=== PATIENT | male | born 1950 | race Caucasian/White ===

== ENCOUNTER 2017-02-13 21:33 | Observation (INO) | payer MEDICARE, MEDICAID ==
[2017-02-13] MEDS ORDERED: CLINDAMYCIN-D5W 900 MG/50 ML*** 900 MG/50 ML BAG IV STA (22:22)
--- NOTE | 2017-02-13 22:25 | ERPHSYRPT ---
- History of Present Illness Time Seen by Provider: 02/13/17 21:55 Source: patient Exam Limitations: no limitations Patient Subjective Stated Complaint: pt states this morning feeling dizzy, confused, states has happened before when he needed a blood transfusion Triage Nursing Assessment: Skin pale, alert to person and place, bilat LE swelling, weeping, stating he has been getting treatment for wounds for cellulitis; wears 3.5L at home O2 Physician History: FOR THE PAST WEEK PT HAS HAD GENERALIZED WEAKNESS AND WAS SEEING BLACK SPOTS. PT STATES TODAY HE HAS BEEN DIZZY AND CONFUSED. ONE WEEK AGO PT DROPPED A PIECE OF WOOD ON HIS LEFT LEG WITH REMOVAL OF SKIN AND HAS BEEN BLEEDING THROUGH BANDAGES SINCE. PT HAS HAD CHRONIC LEG EDEMA FOR YEARS. PT DENIES PASSING BLOOD IN STOOLS, VOMITING BLOOD OR URINATING BLOOD. PT DENIES CHEST PAIN, NAUSEA, FEVER; ADMITS TO SHORTNESS OF AIR BECAUSE OF HIS COPD. Allergies/Adverse Reactions: meperidine HCl [From Demerol] Allergy (Verified 09/30/14 05:51) sob/ n&v Home Medications: Carvedilol 12.5 mg [Coreg 12.5 mg] 12.5 mg PO BID 06/19/13 [History] Potassium Chloride 20 Meq [Klor-Con 20 MEQ] 50 meq PO BID 03/12/14 [History] Allopurinol 100 mg [Zyloprim 100 mg] 100 mg PO QID 02/13/17 [History] Ferrous Sulfate 1 tab PO TID 02/13/17 [History] Torsemide 1 tab PO BID 02/13/17 [History] Hx Tetanus, Diphtheria Vaccination/Date Given: No Hx Influenza Vaccination/Date Given: No Hx Pneumococcal Vaccination/Date Given: No Immunizations Up to Date: Yes - Review of Systems Constitutional: Weakness (GENERALIZED) Eyes: Other (SEEING BLACK SPOTS) Respiratory: Dyspnea Cardiac: No Chest Pain Abdominal/Gastrointestinal: No Abdominal Pain, No Nausea, No Vomiting Musculoskeletal: Other (ULCER ON LEFT LEG; CHRONIC LEG SWELLING BILATERALLY.) Neurological: Dizziness, Other (CONFUSION) All Other Systems: Reviewed and Negative - Past Medical History Pertinent Past Medical History: Yes Neurological History: No Pertinent History ENT History: No Pertinent History Cardiac History: Congestive Heart Failure, Hypertension, Myocardial Infarction ( [place]), Other Respiratory History: COPD, Pneumonia Endocrine Medical History: No Pertinent History Musculoskeletal History: No Pertinent History GI Medical History: GERD History: Renal Disease Psycho-Social History: No Pertinent History Male Reproductive Disorders: No Pertinent History Other Medical History: CABG - Past Surgical History Past Surgical History: Yes Neuro Surgical History: No Pertinent History Cardiac: CABG Respiratory: No Pertinent History Gastrointestinal: No Pertinent History Genitourinary: No Pertinent History Musculoskeletal: Joint Replacement Male Surgical History: No Pertinent History Other Surgical History: rt knee - Social History Smoking Status: Former smoker Exposure to second hand smoke: Yes Drug Use: none Patient Lives Alone: No - Nursing Vital Signs Nursing Vital Signs: Initial Vital Signs Temperature 97.8 F 02/13/17 21:53 Pulse Rate 98 H 02/13/17 21:53 Respiratory Rate 24 02/13/17 21:53 Blood Pressure 82/46 02/13/17 21:53 O2 Sat by Pulse Oximetry 100 02/13/17 21:53 Pain Scale Pain Intensity 0 - Physical Exam General Appearance: alert Eye Exam: PERRL/EOMI Ears, Nose, Throat Exam: moist mucous membranes Neck Exam: normal inspection Respiratory Exam: lungs clear Cardiovascular Exam: normal heart sounds Gastrointestinal/Abdomen Exam: soft, normal bowel sounds Back Exam: other (KYPHOSIS) Extremity Exam: other (+3 EDEMA OF BOTH LEGS; 10" X 6.5 " ULCER ON LEFT YBARRA.) Neurologic Exam: alert, oriented x 3, cooperative Skin Exam: pale SpO2 Interpretation: normal SpO2: 100 Oxygen Delivery: Room Air - Course Nursing assessment & vital signs reviewed: Yes EKG Interpreted by Me: RATE ([id number]), NORMAL AXIS, Non-specific ST Changes - Radiology Exams Left Lower Leg X-ray Interpretation: Interpreted by me, No Fracture Chest X-ray Interpretation: Interpreted by me, No Pneumonia - Radiology Ultrasound Exam Left Venous Lower Extremity Ultrasound: Other (TECH REPORT: NO DVT) Ordered Tests: Active Orders 24 hr Category Date Time Status Ticket Writer STAT Care 02/13/17 22:21 Active Clean Catch Urine Specimen STAT Care 02/13/17 22:19 Active EKG-ER Only STAT Care 02/13/17 22:19 Active IV Insertion STAT Care 02/13/17 22:19 Active Oxygen-ED Only NASAL CANNULA 3 lpm Care 02/13/17 22:19 Active Pulse Oximetry (ED) STAT Care 02/13/17 22:19 Active CHEST 1 VIEW (PORTABLE) Stat Exams 02/13/17 22:21 Taken LOWER LEG Stat Exams 02/13/17 23:00 Taken VENOUS BILATERAL EXTREMITY [US] Stat Exams 02/13/17 22:23 Taken AMYLASE Stat Lab 02/13/17 22:35 Completed BLOOD CULTURE Stat Lab 02/13/17 22:45 Received CBC W DIFF Stat Lab 02/13/17 22:35 Completed CMP Stat Lab 02/13/17 22:35 Completed LIPASE Stat Lab 02/13/17 22:35 Completed MAGNESIUM Stat Lab 02/13/17 22:35 Completed Manual Differential NC Stat Lab 02/13/17 22:35 Completed NT PRO BNP Stat Lab 02/13/17 22:35 Completed TROPONIN Q3H Lab 02/13/17 22:35 Completed TROPONIN Q3H Lab 02/14/17 01:30 Ordered TROPONIN Q3H Lab 02/14/17 04:30 Ordered TROPONIN Q3H Lab 02/14/17 07:30 Ordered TROPONIN Q3H Lab 02/14/17 10:30 Ordered UA W/RFX UR CULTURE Stat Lab 02/13/17 22:20 Ordered Medication Summary Generic Name Dose Route Start Last Admin Trade Name Freq PRN Reason Stop Dose Admin Sodium Chloride 1,000 mls @ 100 mls/hr 02/13/17 22:30 02/13/17 22:34 Sodium Chloride 0.9% 1000 Ml IV 03/15/17 22:29 100 mls/hr .Q10H LJ Administration Discontinued Medications Generic Name Dose Route Start Last Admin Trade Name Freq PRN Reason Stop Dose Admin Clindamycin HCl/Dextrose 900 mg in 50 mls @ 100 mls/hr 02/13/17 22:22 22:34 Clindamycin-D5w 900 Mg/50 Ml IV 02/13/17 22:51 100 mls/hr STAT STA Administration Clindamycin HCl/Dextrose Confirm 02/13/17 22:28 Clindamycin-D5w 900 Mg/50 Ml Administered 02/13/17 22:29 Dose 900 mg in 50 mls @ ud IV .STK-MED ONE Lab/Rad Data: Laboratory Result Diagrams 02/13/17 22:35 02/13/17 22:35 Laboratory Results 02/13/17 02/13/17 02/13/17 Range/Units 22:35 22:35 22:35 WBC 13.5 H (4.0-10.5) K/mm3 RBC 2.02 L (4.1-5.6) M/mm3 Hgb 4.6 L* (12.5-18.0) gm/dl Hct 17.2 L (42-50) % MCV 85.1 (78-100) fl MCH 22.7 L (26-32) pg MCHC 26.7 L (32-36) g/dl RDW 18.7 H (11.5-14.0) % Plt Count 392 (150-450) K/mm3 MPV 8.2 (6-9.5) fl Sodium 128 L (136-145) mEq/L Potassium 4.2 (3.5-5.1) mEq/L Chloride 87 L (98-107) mEq/L Carbon Dioxide 35.4 H (21-32) mEq/L Anion Gap 10.0 (5-15) MEQ/L BUN 86 H (9-20) mg/dL Creatinine 4.42 H (0.55-1.30) mg/dl Estimated GFR 14 ML/MIN Glucose 102 (70-110) MG/DL Calcium 8.1 L (8.5-10.1) mg/dL Magnesium 2.7 H (1.8-2.4) mg/dL Total Bilirubin 0.20 (0.2-1.0) mg/dL AST 15 (15-37) U/L ALT 11 L (12-78) U/L Alkaline Phosphatase 97 (46-116) U/L Troponin I 0.035 (0.000-0.056) ng/ml NT-Pro-B Natriuret Pep 3713 H (0-125) pg/ml Serum Total Protein 6.3 L (6.4-8.2) gm/dL Albumin 2.0 L (3.4-5.0) g/dL Amylase 101 (25-115) U/L Lipase 223 (73-393) U/L - Progress Discussed with : Yuliya ([facility] - [id number]) - Departure Time of Disposition: 00:57 Departure Disposition: Observation Clinical Impression: SEVERE ANEMIA, CELLULITIS/ULCER OF LEFT LEG, HTN, COPD, GERD, CKD Condition: Stable Critical Care Time: No Referrals: KIZZY MENJIVAR [Primary Care Provider] -
[2017-02-13] MEDS ORDERED: CLINDAMYCIN-D5W 900 MG/50 ML*** 900 MG/50 ML BAG IV ONE (22:28)
[2017-02-13] MEDS ORDERED: Sodium Chloride 0.9% 1000 ML 1,000 ML ONE (22:28)
[2017-02-13] MEDS ORDERED: Sodium Chloride 0.9% 1000 ML 1,000 ML IV SCH (22:30)
[2017-02-13 23:19] LABS: Granulocyte Absolute (ANC) 11.41 (1.4-6.9); Hematocrit 17.2 % (42-50); Mean Cell Volume 85.1 fl (78-100); Mean Corpuscular Hgb Concent. 26.7 g/dl (32-36); Mean Platelet Volume 8.2 fl (6-9.5); Platelet Count 392 K/mm3 (150-450); Red Blood Count 2.02 M/mm3 (4.1-5.6); Red Cell Distribution Width 18.7 % (11.5-14.0); White Blood Count 13.5 K/mm3 (4.0-10.5)
[2017-02-13 23:21] LABS: Mean Corpuscular Hemoglobin 22.7 pg (26-32)
[2017-02-13 23:22] LABS: Hemoglobin 4.6 gm/dl (12.5-18.0)
[2017-02-13 23:32] LABS: BILIRUBIN,TOTAL 0.2 mg/dL (0.2-1.0); Calcium 8.1 mg/dL (8.5-10.1); Carbon Dioxide 35.4 mEq/L (21-32); Creatinine 1 4.42 mg/dl (0.55-1.30); MAGNESIUM 2.7 mg/dL (1.8-2.4); Potassium 4.2 mEq/L (3.5-5.1); Total Protein 6.3 gm/dL (6.4-8.2)
[2017-02-14 01:00] LABS: ABO TYPING A; Antibody Screen NEGATIVE (NEGATIVE); RH TYPING NEGATIVE
[2017-02-14] MEDS ORDERED: TYLENOL 325 MG PO PRN (01:39)
[2017-02-14] MEDS ORDERED: PROVENTIL 2.5 MG/3 ML NEB IH PRN (01:39)
[2017-02-14] MEDS ORDERED: Phenergan 25 MG INJ IV PRN (01:39)
[2017-02-14] MEDS ORDERED: Sodium Chloride 0.9% 1000 ML 1,000 ML IV SCH (01:39)
[2017-02-14 03:09] LABS: Appearance CLEAR (CLEAR); Bilirubin NEGATIVE (NEGATIVE); Blood NEGATIVE Ery/ul (0-5); Glucose NEGATIVE (NEGATIVE); Ketones NEGATIVE (NEGATIVE); Leukocyte Esterase NEGATIVE (NEGATIVE); Nitrite NEGATIVE (NEGATIVE); Ph 6.5 (5-6); Protein,Urine Dip NEGATIVE (Negative); Urobilinogen NORMAL mg/dL (0-1)
[2017-02-14 04:21] LABS: Eosinophil 1 % (0.00-3.0); Lymphocytes 8 % (24-44); Monocyte 5 % (0.0-12.0); Neutrophils 86 % (36.-66.); Platelet Estimate NORMAL (NORMAL); Total Cells Counted 100
[2017-02-14 04:22] LABS: ANISOCYTOSIS 3+; Poikilocytosis 2+
[2017-02-14 04:24] LABS: Macrocytosis 1+
[2017-02-14 04:25] LABS: Stomatocyte 1+; Targert Cells RARE
[2017-02-14] MEDS ORDERED: PROTONIX 40 MG IV IV ONE (04:52)
[2017-02-14] MEDS ORDERED: CLINDAMYCIN-D5W 600 MG/50 ML*** 600 MG/50 ML BAG IV SCH (06:00)
[2017-02-14] MEDS: DUONEB 0.5-3 MG/3 ml Neb IH SCH ×2 (06:45→10:34)
--- NOTE | 2017-02-14 08:36 | XRAY ---
Indication: Swelling. Two-dimensional sonogram and color Doppler imaging of the major venous vessels of the left and right leg was performed. Comparison: March 13, 2014. Again no thrombus seen in the examined deep venous vessels of the left and right leg including greater saphenous veins. Veins demonstrate normal compressibility. Venous waveforms are normal with and without augmentation. Impression: Left and right legs again negative for DVT. Comment: Preliminary report was given.
--- NOTE | 2017-02-14 08:52 | XRAY ---
Indication: Short of breath. Comparison: October 02, 2014. Portable chest limited due to patient's head obscuring the apices. Visualized lungs clear. Heart is not enlarged and again demonstrates previous CABG surgery. Bony thorax intact again with mild osteopenia and degenerative changes. Impression: Nonacute limited portable chest.
--- NOTE | 2017-02-14 08:52 | XRAY ---
Indication: Weeping wound following injury. Comparison: February 18, 2015. 2 views of the left lower leg again demonstrates mild osteopenia, scattered vascular calcifications, numerous vascular clips, and diffuse soft tissue swelling/edema. No new/acute findings.
[2017-02-14] MEDS ORDERED: PROTONIX 40 MG IV IV SCH ×2 (10:00→22:00)
[2017-02-14 10:01] LABS: Granulocyte Absolute (ANC) 8.86 (1.4-6.9); Hematocrit 19.3 % (42-50); Mean Cell Volume 83.5 fl (78-100); Mean Platelet Volume 7.4 fl (6-9.5); Platelet Count 279 K/mm3 (150-450); Red Blood Count 2.31 M/mm3 (4.1-5.6); Red Cell Distribution Width 19.1 % (11.5-14.0); White Blood Count 10.4 K/mm3 (4.0-10.5)
[2017-02-14 10:20] LABS: Mean Corpuscular Hemoglobin 23.3 pg (26-32)
[2017-02-14 10:23] LABS: Hemoglobin 5.4 gm/dl (12.5-18.0)
[2017-02-14] MEDS ORDERED: DEMADEX 20 MG PO SCH (11:00)
[2017-02-14] MEDS ORDERED: COREG 12.5 MG PO SCH (11:00)
[2017-02-14] MEDS ORDERED: Klor Con 10 MEQ PO SCH (11:00)
[2017-02-14 11:56] LABS: ALBUMIN 1.9 g/dL (3.4-5.0); ANION GAP 8.8 MEQ/L (5-15); BILIRUBIN,TOTAL 0.3 mg/dL (0.2-1.0); Calcium 7.8 mg/dL (8.5-10.1); Carbon Dioxide 34.6 mEq/L (21-32); Creatinine 1 3.8 mg/dl (0.55-1.30); Total Protein 5.8 gm/dL (6.4-8.2)
[2017-02-14 12:10] LABS: Potassium 2.9 mEq/L (3.5-5.1)
[2017-02-14 12:24] LABS: ANISOCYTOSIS 1+; Lymphocytes 9 % (24-44); Monocyte 4 % (0.0-12.0); Neutrophils 87 % (36.-66.); Platelet Estimate NORMAL (NORMAL); Poikilocytosis 1+; Total Cells Counted 100
[2017-02-14 12:25] LABS: Polychromasia 1+
[2017-02-14 12:51] VITALS: BP 98/47; PULSE 91; O2SAT 100
[2017-02-14] MEDS ORDERED: ZYLOPRIM 100 MG PO SCH (13:00)
[2017-02-14] MEDS ORDERED: FEOSOL 325 MG PO SCH (15:00)
[2017-02-14] MEDS ORDERED: TORSEMIDE PO SCH (22:00)
[2017-02-15 08:38] LABS: Vitamin D 25 Hydroxy 32 ng/mL (30-80)
[2017-02-15] MEDS ORDERED: NON-FORMULARY ITEM (Omeprazole [Omeprazole] 20 MG) PO SCH (10:00)
[2017-02-15] MEDS ORDERED: Protonix 40MG Tablet PO SCH (10:00)
[2017-02-15 10:14] LABS: PTH INTACT 198 pg/mL (15-72)
== END 2017-02-14 12:45 | disposition short-term general hospital (02) ==
LOC: ED 21:33 → MED SURG 02-14 01:17
PROVIDERS: ADMIT General Practice; ATTEND General Practice
DX: D64.9 Anemia, unspecified (principal); L03.116 Cellulitis of left lower limb; L97.929 Non-pressure chronic ulcer of unspecified part of left lower leg with unspecified severity; I12.9 Hypertensive chronic kidney disease with stage 1 through stage 4 chronic kidney disease, or unspecified chronic kidney disease; N18.9 Chronic kidney disease, unspecified; M79.89 Other specified soft tissue disorders; I50.9 Heart failure, unspecified; K21.9 Gastro-esophageal reflux disease without esophagitis; J44.9 Chronic obstructive pulmonary disease, unspecified; Z79.899 Other long term (current) drug therapy
CPT/HCPCS: 36000; 36415; 36430; 71045; 73590; 80053; 81002; 82150; 82306; 83690; 83735; 83880; 83970; 84484; 85025; 86850; 86900; 86901; 86922; 87040; 93005; 93041; 93268; 93970; 94640; 94760; 96360; 96361; 96365; 99285; G0378; P9016; A9270-GY

== ENCOUNTER 2017-08-12 08:13 | Emergency (ER) | payer MEDICARE, MEDICAID ==
--- NOTE | 2017-08-12 08:46 | ERPHSYRPT ---
- History of Present Illness Time Seen by Provider: 08/12/17 08:34 Source: patient Exam Limitations: no limitations Patient Subjective Stated Complaint: pt here for constipation for over a week now, has laxitive with no help, pt aslo co increase sob. Triage Nursing Assessment: pt alert, resp labored with excertion, abd large and distended . 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 He arrives with complaint of constipation and abdominal distention symptoms for 2 weeks. He has shortness of breath. Patient has chronic edema to the lower legs. Patient states he had a very small bowel movement yesterday abdominal is markedly distended. Past medical history includes high blood pressure, CHF, IN, COPD, pneumonia, GERD, CABG, venous stasis lower extremities, renal insufficiency, cellulitis of the lower extremities., Severe anemia Past surgical history includes CABG, right knee replacement. Social history patient former smoker. Timing/Duration: week(s) (2-1/2 weeks) Severity: moderate Modifying Factors: Improves With: nothing Associated Symptoms: shortness of breath, other (abdominal distention constipation, edema lower extremities), No nausea, No vomiting, No abdominal pain, No heartburn, No diaphoresis, No cough, No chills, No chest pain, No fever , No headaches, No loss of appetite, No malaise, No rash, No seizure, No weakness Allergies/Adverse Reactions: meperidine HCl [From Demerol] Allergy (Verified 08/12/17 08:31) sob/ n&v Home Medications: Carvedilol 12.5 mg [Coreg 12.5 mg] 12.5 mg PO BID 06/19/13 [History] Allopurinol 100 mg [Zyloprim 100 mg] 100 mg PO QID 02/13/17 [History] Ferrous Sulfate 1 tab PO TID 02/13/17 [History] Torsemide 1 tab PO BID 02/13/17 [History] Acetaminophen [Tylenol Extra Strength] 500 mg PO BID PRN 02/14/17 [History] Albuterol 2.5 mg/3 ml Neb [Proventil 2.5 mg/3 ml Neb] 2.5 mg IH QID [History] Albuterol Sulfate [Proventil Hfa] 6.7 gm IH BID PRN 02/14/17 [History] Aspirin 81 gm Chew [Baby Aspirin 81 mg Chew] 81 mg PO DAILY 02/14/17 [ History] Omeprazole 20 mg PO DAILY 02/14/17 [History] Potassium Chloride 10 Meq Tab* [Klor Con 10 MEQ] 50 meq PO BID 02/14/17 [ History] Hx Tetanus, Diphtheria Vaccination/Date Given: No Hx Influenza Vaccination/Date Given: Yes Hx Pneumococcal Vaccination/Date Given: Yes Immunizations Up to Date: Yes - Review of Systems Constitutional: No Fever, No Chills Eyes: No Symptoms Ears, Nose, & Throat: No Symptoms Respiratory: Dyspnea Cardiac: Edema, No Chest Pain, No Syncope Abdominal/Gastrointestinal: Other (abdominal distention constipation) Genitourinary Symptoms: No Dysuria Musculoskeletal: No Back Pain, No Neck Pain Skin: Other (chronic venous stasis lower extrremities) Neurological: No Dizziness, No Focal Weakness, No Sensory Changes Psychological: No Symptoms Endocrine: No Symptoms All Other Systems: Reviewed and Negative - Past Medical History Pertinent Past Medical History: Yes Neurological History: No Pertinent History ENT History: No Pertinent History Cardiac History: Congestive Heart Failure, Myocardial Infarction ([place]), Other Respiratory History: COPD, Pneumonia Endocrine Medical History: No Pertinent History Musculoskeletal History: No Pertinent History GI Medical History: GERD History: Renal Disease Psycho-Social History: No Pertinent History Male Reproductive Disorders: No Pertinent History Other Medical History: CABG - Past Surgical History Past Surgical History: Yes Neuro Surgical History: No Pertinent History Cardiac: CABG Respiratory: No Pertinent History Gastrointestinal: No Pertinent History Genitourinary: No Pertinent History Musculoskeletal: Joint Replacement Male Surgical History: No Pertinent History Other Surgical History: rt knee - Social History Smoking Status: Former smoker Exposure to second hand smoke: No Drug Use: none Patient Lives Alone: No - Nursing Vital Signs Nursing Vital Signs: Initial Vital Signs Temperature 97.5 F 08/12/17 08:16 Pulse Rate 68 08/12/17 08:16 Respiratory Rate 24 08/12/17 08:16 Blood Pressure 110/61 08/12/17 08:16 O2 Sat by Pulse Oximetry 92 L 08/12/17 08:16 Pain Scale Pain Intensity 6 - Physical Exam General Appearance: other (well-developed white male, markedly abdominal distention, patient short of breath with talking) Eye Exam: PERRL/EOMI, eyes nml inspection Ears, Nose, Throat Exam: normal ENT inspection, TMs normal, pharynx normal, moist mucous membranes Neck Exam: normal inspection, non-tender, supple, full range of motion Respiratory Exam: other (patient's lungs are clear, patient becomes short ofbreath with talking) Cardiovascular Exam: regular rate/rhythm, normal heart sounds, normal peripheral pulses Gastrointestinal/Abdomen Exam: other (abdomen markedly distended, firm, nontender, bowel sounds positive) Rectal Exam: other (no hard stool palpated, brown stool, some visible blood possibly from rectum) Back Exam: normal inspection, normal range of motion, No CVA tenderness, No vertebral tenderness Extremity Exam: other (lower extremities edematous, not hot, clear to blood tinged drainage from bilateral legs..) Neurologic Exam: alert, oriented x 3, cooperative, prosthetics technician II-XII nml as tested, normal mood/affect, nml cerebellar function, nml station & gait, sensation nml, No motor deficits Skin Exam: other (lower extremity edema, clear to blood-tinged drainage from legs) SpO2 Interpretation: normal (92%) SpO2: 92 Oxygen Delivery: Nasal Cannula - Course Nursing assessment & vital signs reviewed: Yes EKG Interpreted by Me: RATE (67 bpm), Sinus Rhythm, NORMAL AXIS, Other (EKG: Sinus rhythm with large amount of artifact, [address] depression V1 andV2) - Radiology Exams Abdomen X-ray Interpretation: Interpreted by me (acute abdomen series: Chest no acute disease proces, abdomen multiple air-fluid levels concerning for small bowel obstruction) Ordered Tests: Active Orders 24 hr Category Date Time Status EKG-ER Only STAT Care 08/12/17 08:38 Active IV Insertion STAT Care 08/12/17 08:38 Active IV Insertion-2nd Peripheral STAT Care 08/12/17 13:17 Active ABDOMEN AND PELVIS W/0 CONTRAS [CT] Stat Exams 08/12/17 10:43 Taken OBSTR/ACUTE ABDOMEN SERIES Stat Exams 08/12/17 09:32 Taken AMYLASE Stat Lab 08/12/17 09:35 Completed BLOOD CULTURE Stat Lab 08/12/17 12:05 Received CBC W DIFF Stat Lab 08/12/17 09:35 Completed CMP Stat Lab 08/12/17 09:35 Completed LIPASE Stat Lab 08/12/17 09:35 Completed Lactic Acid Stat Lab 08/12/17 12:10 Completed Lactic Acid Stat Lab 08/12/17 14:10 Ordered Manual Differential NC Stat Lab 08/12/17 09:35 Completed NT PRO BNP Stat Lab 08/12/17 09:35 Completed Occult Blood,Stool Other Stat Lab 08/12/17 11:45 Completed PROTIME WITH INR Stat Lab 08/12/17 09:55 Completed PTT Stat Lab 08/12/17 09:55 Completed Medication Summary Discontinued Medications Generic Name Dose Route Start Last Admin Trade Name Freq PRN Reason Stop Dose Admin Albuterol Sulfate Confirm 08/12/17 12:46 Proventil 2.5 Mg/3 Ml Neb Administered 08/12/17 12:47 Dose 2.5 mg IH .STK-MED ONE Sodium Chloride 1,000 mls @ 30 mls/hr 08/12/17 10:15 08/12/17 10:45 Sodium Chloride 0.9% 1000 Ml IV 09/11/17 10:14 30 mls/hr .Q24H LJ Administration Piperacillin Sod/Tazobactam Sod 3.375 gm in 100 mls @ 200 mls/hr 08/12/17 11: 50 08/12/17 12:06 Zosyn 3.375gm/100 Ml D5w IV 08/12/17 12:19 200 mls/hr STAT STA Administration Piperacillin Sod/Tazobactam Sod Confirm 08/12/17 11:57 Zosyn 3.375gm/100 Ml D5w Administered 08/12/17 11:58 Dose 3.375 gm in 100 mls @ ud IV .STK-MED ONE Dopamine HCl/Dextrose Confirm 08/12/17 12:45 Dopamine 400 Mg/D5w 250ml Premix Administered 08/12/17 12:46 Dose 250 mls @ ud IV .STK-MED ONE Dopamine HCl/Dextrose Confirm 08/12/17 12:48 Dopamine 400 Mg/D5w 250ml Premix Administered 08/12/17 12:49 Dose 250 mls @ ud IV .STK-MED ONE Sodium Chloride Confirm 08/12/17 10:13 Sodium Chloride 0.9% 1000 Ml Administered 08/12/17 10:14 Dose 1,000 mls @ ud .ROUTE .STK-MED ONE Morphine Sulfate 2 mg 08/12/17 10:01 08/12/17 10:08 Morphine Sulfate 2 Mg Inj IV 08/12/17 10:02 2 mg STAT ONE Administration Morphine Sulfate Confirm 08/12/17 10:02 Morphine Sulfate 2 Mg Inj Administered 08/12/17 10:03 Dose 2 mg .ROUTE .STK-MED ONE Lab/Rad Data: Laboratory Result Diagrams 08/12/17 09:35 08/12/17 09:35 Laboratory Results 08/12/17 08/12/17 08/12/17 Range/Units 12:10 11:45 09:55 WBC (4.0-10.5) K/mm3 RBC (4.1-5.6) M/mm3 Hgb (12.5-18.0) gm/dl Hct (42-50) % MCV (78-100) fl MCH (26-32) pg MCHC (32-36) g/dl RDW (11.5-14.0) % Plt Count (150-450) K/mm3 MPV (6-9.5) fl Absolute Granulocytes (1.4-6.9) Segmented Neutrophils (36.-66.) % Band Neutrophils (0.0-2.0) % Lymphocytes (Manual) (24-44) % Monocytes (Manual) (0.0-12.0) % Basophils (Manual) (0.0-1.0) % Toxic Granulation Platelet Estimate (NORMAL) RBC Morphology PT 14.1 H (8.83-12.87) SECONDS INR 1.21 (0.8-3.0) APTT 32.0 (24.1-36.1) SECONDS Sodium (137-145) mmol/L Potassium (3.5-5.1) mmol/L Chloride (98-107) mmol/L Carbon Dioxide (22-30) mmol/L Anion Gap (5-15) MEQ/L BUN (9-20) mg/dL Creatinine (0.66-1.25) mg/dL Estimated GFR ML/MIN Glucose (74-106) mg/dL Lactic Acid 1.9 (0.4-2.0) Calcium (8.4-10.2) mg/dL Total Bilirubin (0.2-1.3) mg/dL AST (17-59) U/L ALT (0-50) U/L Alkaline Phosphatase (38-126) U/L NT-Pro-B Natriuret Pep (0-900) pg/mL Serum Total Protein (6.3-8.2) g/dL Albumin (3.5-5.0) g/dL Amylase (30-110) U/L Lipase (23-300) U/L Stool Occult Blood POSITIVE (Negative) 08/12/17 08/12/17 08/12/17 Range/Units 09:35 09:35 09:35 WBC 22.2 H (4.0-10.5) K/mm3 RBC 4.47 (4.1-5.6) M/mm3 Hgb 12.8 (12.5-18.0) gm/dl Hct 42.1 (42-50) % MCV 94.2 (78-100) fl MCH 28.6 (26-32) pg MCHC 30.4 L (32-36) g/dl RDW 17.3 H (11.5-14.0) % Plt Count 265 (150-450) K/mm3 MPV 9.1 (6-9.5) fl Absolute Granulocytes 21.05 H (1.4-6.9) Segmented Neutrophils 83 H (36.-66.) % Band Neutrophils 12 H (0.0-2.0) % Lymphocytes (Manual) 2 L (24-44) % Monocytes (Manual) 2 (0.0-12.0) % Basophils (Manual) 1 (0.0-1.0) % Toxic Granulation 1+ Platelet Estimate NORMAL (NORMAL) RBC Morphology ABNORMAL PT (8.83-12.87) SECONDS INR (0.8-3.0) APTT (24.1-36.1) SECONDS Sodium 136 L (137-145) mmol/L Potassium 5.7 H (3.5-5.1) mmol/L Chloride 91 L (98-107) mmol/L Carbon Dioxide 31 H (22-30) mmol/L Anion Gap 20.0 H (5-15) MEQ/L BUN 46 H (9-20) mg/dL Creatinine 6.11 H (0.66-1.25) mg/dL Estimated GFR 9.8 ML/MIN Glucose 139 H (74-106) mg/dL Lactic Acid (0.4-2.0) Calcium 9.7 (8.4-10.2) mg/dL Total Bilirubin 0.90 (0.2-1.3) mg/dL AST 24 (17-59) U/L ALT 28 (0-50) U/L Alkaline Phosphatase 137 H (38-126) U/L NT-Pro-B Natriuret Pep > 87173 H (0-900) pg/mL Serum Total Protein 8.6 H (6.3-8.2) g/dL Albumin 4.4 (3.5-5.0) g/dL Amylase 71 (30-110) U/L Lipase 37 (23-300) U/L Stool Occult Blood (Negative) - Progress Progress: improved Progress Note: 08/12/17 11:50 67-year-old white male with history of anemia, high blood pressure, CHF, [place], COPD, pneumonia, GERD, chronic vascular insufficiency of the lower extremities as well as edema of the lower extremities, renal insufficiency with dialysis. Patient arrives with complaint of abdominal distention and pain in his abdomen for 2 weeks. He states he had one bowel movement yesterday. He states he has been having some. Umbilical pain. He has not been vomiting he has been short of breath. Patient initially with the bilateral showing a temperature 97.5 pulse 68 respiration 24 blood pressure 110/61 and sats were 92%. Patient is noted to have a white count of 22,000 hemoglobin 12.8 hematocrit 42.1 platelets 265 Chemistry shows sodium 136 potassium 5.7 chloride 91 bicarbonate 31 BUN 46 creatinine 6.11 glucose 139 Patient's EKG is remarkable atrial for sinus rhythm 67 bpm normal axis large amount of artifact ST depression in V1 and V2. Patient's chest x-ray as part of an acute abdominal series no acute disease process noted. Patient's acute abdomen shows multiple air-fluid levels. Patient's BNP is 35,000. Patient's CT abdomen has been obtained and reading is pending Patient was noted to have systolic blood pressure come down to 83 he is being given IV normal saline bolus of 250 mg increments. Patient's blood cultures have been obtained and IV Zosyn has been ordered. I've discussed the case with initially Dr. Menjivar she has agreed to transfer to [facility]. I contacted Dr. Covarrubias through [facility] one call he has excepted patient for transfer. Notified by nurse the patient's blood pressure dropped into the 70s sats down into the low 80s. IV dopamine drip is ordered albuterol treatment is ordered oxygen is increased.. I've discussed the case with Dr. Covarrubias with she requests that we turned the patient's IV fluids up to 500 mL per hour Oxygenation seems to be coming up with the increased oxygen and albuterol treatment. Will transfer. 08/12/17 12:51 - Departure Time of Disposition: 11:55 Departure Disposition: [facility] Clinical Impression: Small bowel obstruction, hx renal failure on dialysis Abdominal pain Qualifiers: Abdominal location: periumbilical Qualified Code(s): R10.33 - Periumbilical pain Leukocytosis Qualifiers: Leukocytosis type: unspecified Qualified Code(s): D72.829 - Elevated white blood cell count, unspecified Hypotension Qualifiers: Hypotension type: other hypotension type Qualified Code(s): I95.89 - Other hypotension Condition: Fair Critical Care Time: Yes Critical Care Time(excluding separately billable procedures): 30-74 minutes Referrals: KIZZY MENJIVAR [Primary Care Provider] -
[2017-08-12 09:44] LABS: Granulocyte Absolute (ANC) 21.05 (1.4-6.9); Hematocrit 42.1 % (42-50); Hemoglobin 12.8 gm/dl (12.5-18.0); Mean Cell Volume 94.2 fl (78-100); Mean Corpuscular Hemoglobin 28.6 pg (26-32); Mean Corpuscular Hgb Concent. 30.4 g/dl (32-36); Mean Platelet Volume 9.1 fl (6-9.5); Platelet Count 265 K/mm3 (150-450); Red Blood Count 4.47 M/mm3 (4.1-5.6); Red Cell Distribution Width 17.3 % (11.5-14.0); White Blood Count 22.2 K/mm3 (4.0-10.5)
[2017-08-12 10:01] LABS: ALBUMIN 4.4 g/dL (3.5-5.0); BILIRUBIN,TOTAL 0.9 mg/dL (0.2-1.3); Calcium 9.7 mg/dL (8.4-10.2); Creatinine 1 6.11 mg/dL (0.66-1.25); Potassium 5.7 mmol/L (3.5-5.1); Total Protein 8.6 g/dL (6.3-8.2)
[2017-08-12] MEDS ORDERED: MORPHINE SULFATE 2 MG INJ IV ONE (10:01)
[2017-08-12] MEDS ORDERED: MORPHINE SULFATE 2 MG INJ ONE (10:02)
[2017-08-12] MEDS ORDERED: Sodium Chloride 0.9% 1000 ML 1,000 ML ONE (10:13)
[2017-08-12] MEDS ORDERED: Sodium Chloride 0.9% 1000 ML 1,000 ML IV SCH (10:15)
[2017-08-12 10:19] LABS: INR 1.21 (0.8-3.0)
[2017-08-12 11:06] LABS: BAND 12 % (0.0-2.0); Basophil 1 % (0.0-1.0); Lymphocytes 2 % (24-44); Monocyte 2 % (0.0-12.0); Neutrophils 83 % (36.-66.); Total Cells Counted 100
[2017-08-12 11:07] LABS: Platelet Estimate NORMAL (NORMAL); Toxic Granulation 1+
[2017-08-12] MEDS ORDERED: Zosyn 3.375GM/100 Ml D5W 3.375 GM/100 ML IVPB IV STA (11:50)
[2017-08-12] MEDS ORDERED: Zosyn 3.375GM/100 Ml D5W 3.375 GM/100 ML IVPB IV ONE (11:57)
[2017-08-12 12:13] VITALS: BP 85/48; PULSE 65
[2017-08-12 12:18] VITALS: O2SAT 92
[2017-08-12 12:18] LABS: Lactic Acid 1.9 (0.4-2.0)
[2017-08-12] MEDS ORDERED: Dopamine 400 MG/D5W 250ML PREMIX 250 ML IV ONE ×2 (12:45→12:48)
[2017-08-12] MEDS ORDERED: PROVENTIL 2.5 MG/3 ML NEB IH ONE (12:46)
--- NOTE | 2017-08-12 21:38 | XRAY ---
Indication: Constipation. Comparison: Portable chest February 13, 2017. 2 views of the abdomen demonstrates abnormal distended small/large bowel air-fluid leveling obscuring solid organs. CT proven extensive pneumatosis and portal air favoring ischemic bowel. No free air. Osseous structures demonstrates osteopenia and moderate spinal degenerative changes. Single PA chest demonstrates new left base infiltrate/atelectasis with stable left mid to lower lung calcified pleural plaquing. Patient's chin obscures the lung apices. Visualize right lung clear. Heart is borderline enlarged. Bony thorax intact with mild osteopenia, degenerative changes, and sternotomy wires. Impression: 1. Abnormal small/large bowel air-fluid leveling with CT proven pneumatosis and portal air favoring ischemic bowel. 2. Limited one view chest demonstrates new left base infiltrate/atelectasis.
--- NOTE | 2017-08-12 21:45 | XRAY ---
Indication: Constipation and bloating 2 weeks. Multiple contiguous axial images obtained through the abdomen and pelvis without contrast as ordered. Comparison: None Lung bases demonstrates incompletely visualized lingular infiltrate/atelectasis and left base calcified pleural plaquing. Heart is borderline enlarged. Mildly fluid distended distal esophagus presumed from gastroesophageal reflux. Noncontrasted stomach is moderately fluid distended. Abnormal moderate fluid distended small and large bowel loops with fluid leveling and extensive diffuse small/large bowel pneumatosis. There is also diffuse portal air favoring ischemic bowel. Gallbladder demonstrates abnormal fluid leveling with pneumobilia and tiny pancreatic duct air that may not be related to ischemic bowel but more concerning for emphysematous cholecystitis/cholangitis. Tiny pelvic free fluid. No walled off fluid collection or free air. Mild atrophic kidneys bilaterally with 4.6 cm left renal cyst and nonobstructing left renal microcalculi. Bilateral adrenal hypertrophy. Calcified splenic granulomas. Remaining pancreas, ureters, and bladder appear unremarkable for noncontrast exam. Mild/moderate scattered vascular calcifications. No AAA. Osseous structures demonstrates mild osteopenia, mild degenerative changes throughout the spine, and old right femur neck fracture with intact orthopedic hardware. Impression: 1. Abnormal distended small/large bowel loops with fluid leveling and pneumatosis. Also diffuse portal air worrisome for ischemic bowel. 2. Abnormal gallbladder air fluid leveling with pneumobilia concerning for emphysematous cholecystitis/cholangitis. 3. Atrophic kidneys with left renal cyst and nonobstructing left renal microcalculi. 4. Bilateral adrenal hypertrophy. 5. Distal esophagus mildly fluid distended. Rule out GERD. 6. Incompletely visualized lingular infiltrate/atelectasis and left base calcified pleural plaquing. Comment: Preliminary interpretation was made by [facility]. No discrepancy. CTDI 23.68
== END 2017-08-12 13:10 | disposition short-term general hospital (02) ==
LOC: ED 08:13
DX: K56.609 Unspecified intestinal obstruction, unspecified as to partial versus complete obstruction (principal); R06.02 Shortness of breath; Z79.82 Long term (current) use of aspirin; Z79.899 Other long term (current) drug therapy; R10.33 Periumbilical pain; D72.829 Elevated white blood cell count, unspecified; I95.9 Hypotension, unspecified; Z99.2 Dependence on renal dialysis
CPT/HCPCS: 74022; 74176; 80053; 82150; 82272; 83605; 83690; 83880; 85025; 85610; 85730; 87040; 93005; 94640; 96365; 96367; 96374; 99291; J7609; 36000; 36415; 99285; J1265; J2270; J2543; A9270-GY